=== PATIENT | male | born 2000 | race Caucasian/White ===

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

== ENCOUNTER 2018-04-16 19:55 | Emergency (ER) | payer BC, OTHER ==
[2018-04-16 20:03] VITALS: BP 124/86
[2018-04-16] MEDS ORDERED: Fluorescein Sodium TOPICAL* 1 MG TEST STRIP OPHTHALMIC ONE (20:08)
[2018-04-16] MEDS ORDERED: BSS OPTH.SOL* BTL OPHTHALMIC ONE (20:10)
--- NOTE | 2018-04-16 20:13 | UC ---
Eye Complaint HPI - HPI Summary HPI Summary: left eye erythema and purulent drainage. no visual deficits or injuries--does wear contact lens' - History of Current Complaint Chief Complaint: UCEye Stated Complaint: EYE IRRITATION Time Seen by Provider: 04/16/18 20:05 Hx Obtained From: Patient Onset/Duration: Sudden Onset Timing: Constant Pain Intensity: 0 Pain Scale Used: 0-10 Numeric Location of Injury: Conjunctiva - left eye Aggravating Factor(s): Contact Lens Alleviating Factor(s): Nothing Associated Signs And Symptoms: Positive: Drainage (Purulent) Related History: Similar Episode - Allergies/Home Medications Allergies/Adverse Reactions: Allergies Allergy/AdvReac Type Severity Reaction Status Date / Time azithromycin Allergy Rash Verified 04/16/18 20:04 Bees Allergy Anaphylatic Uncoded 02/01/17 17:49 Shock Home Medications: Home Medications NK [No Home Medications Reported] 04/16/18 [History Confirmed 04/16/18] PMH/Surg Hx/FS Hx/Imm Hx Previously Healthy: Yes - Surgical History Surgical History: Yes Surgery Procedure, Year, and Place: kidney surgery at age 6, removed scar tissue - Family History Known Family History: Positive: None Negative: Cardiac Disease, Hypertension, Diabetes - Social History Occupation: Employed Full-time Lives: With Family Alcohol Use: None Substance Use Type: None Smoking Status (MU): Former Smoker Type: eCigarettes Have You Smoked in the Last Year: No Review of Systems All Other Systems Reviewed And Are Negative: Yes Constitutional: Positive: Negative Skin: Positive: Negative Eyes: Positive: Drainage - left, Eye Redness - left ENT: Positive: Negative Respiratory: Positive: Negative Cardiovascular: Positive: Negative Gastrointestinal: Positive: Negative Genitourinary: Positive: Negative Motor: Positive: Negative Neurovascular: Positive: Negative Musculoskeletal: Positive: Negative Neurological: Positive: Negative Psychological: Positive: Negative Is Patient Immunocompromised?: No Physical Exam Triage Information Reviewed: Yes Appearance: Well-Appearing, No Pain Distress, Well-Nourished Vital Signs: Initial Vital Signs Temp 97.7 F 04/16/18 20:01 Pulse 84 04/16/18 20:01 Resp 18 04/16/18 20:01 BP 124/86 04/16/18 20:01 Pulse Ox 98 04/16/18 20:01 Vital Signs Reviewed: Yes Eye Exam: Other Eyes: Positive: Conjunctiva Clear - right, Conjunctiva Inflamed - left, Discharge - clear left ENT Exam: Normal ENT: Positive: Normal ENT inspection, Hearing grossly normal, TMs normal. Negative: Nasal congestion, Trismus, Muffled voice, Hoarse voice, Sinus tenderness Dental Exam: Normal Neck exam: Normal Neck: Positive: Supple, Nontender Respiratory Exam: Normal Respiratory: Positive: Chest non-tender, No respiratory distress, No accessory muscle use Cardiovascular Exam: Normal Cardiovascular: Positive: RRR, Pulses Normal, Brisk Capillary Refill Musculoskeletal Exam: Normal Musculoskeletal: Positive: Strength Intact, ROM Intact, No Edema Neurological Exam: Normal Neurological: Positive: Alert, Muscle Tone Normal Psychological Exam: Normal Skin Exam: Normal Re-Evaluation - Re-Evaluation First Eval Change: Unchanged - tolerated eye stain well no evidence of ulceration of laceration Eye Complaint Course/Dx - Course Course Of Treatment: cipro drops left eye follow with eye care provider-- dispove of current pair of contacts and begin with new pair - Differential Dx/Diagnosis Provider Diagnosis: Acute bacterial conjunctivitis of left eye Discharge - Sign-Out/Discharge Documenting (check all that apply): Patient Departure All imaging exams completed and their final reports reviewed: No Studies - Discharge Plan Condition: Stable Disposition: HOME Patient Education Materials: How to Use Eye Drops (ED), Conjunctivitis (ED) Referrals: No Primary Care Phys,NOPCP [Primary Care Provider] - Additional Instructions: Follow with eye care provider this week before you restart using contact lens - Billing Disposition and Condition Condition: STABLE Disposition: Home
[2018-04-16] MEDS ORDERED: Ciprofloxacin 0.3% OPTH.SOL* 2.5 ML BTL LEFT EYE ONE (20:22)
== END 2018-04-16 20:37 | disposition home or self-care (01) ==
LOC: UCEAST 19:55
DX: H10.89 Other conjunctivitis (principal); Z88.1 Allergy status to other antibiotic agents; Z87.891 Personal history of nicotine dependence
CPT/HCPCS: 99212; A9270-GY; G0463

== ENCOUNTER 2018-07-18 16:17 | Emergency (ER) | payer BC ==
[2018-07-18 16:42] VITALS: BP 130/80
--- NOTE | 2018-07-18 17:25 | UC ---
[facility] HPI - HPI Summary HPI Summary: 18-year-old male comes in with a chief complaint of an irritated tongue piercing. 2 days ago the patient had the tongue ring placed. He feels like his tongue is swollen. He also has some pain associated with it. He wonders if this is infected. He is decided that he does not like the feel of the tongue ring and wishes to have it removed. No fevers or chills. No difficulty swallowing. Feels well otherwise pain is worse when he moves the ring. Less pain when he doesn't. - History of Current Complaint Chief Complaint: UCSkin Stated Complaint: PIERCING COMPLAINT Time Seen by Provider: 07/18/18 16:55 Pain Intensity: 4 - Allergies/Home Medications Allergies/Adverse Reactions: Allergies Allergy/AdvReac Type Severity Reaction Status Date / Time azithromycin Allergy Rash Verified 07/18/18 16:42 Bees Allergy Anaphylatic Uncoded 07/18/18 16:42 Shock Home Medications: Home Medications EPINEPHrine [Epipen] 0.3 mg IJ SEE INSTRUCTIONS 07/18/18 [History Confirmed ] PMH/Surg Hx/FS Hx/Imm Hx Previously Healthy: Yes - Surgical History Surgical History: Yes Surgery Procedure, Year, and Place: kidney surgery at age 6, removed scar tissue - Family History Known Family History: Positive: None Negative: Cardiac Disease, Hypertension, Diabetes - Social History Alcohol Use: Rare Substance Use Type: Marijuana Smoking Status (MU): Light Every Day Tobacco Smoker Type: eCigarettes Have You Smoked in the Last Year: No Review of Systems All Other Systems Reviewed And Are Negative: Yes Constitutional: Positive: Negative Skin: Positive: Negative Eyes: Positive: Negative ENT: Positive: Other - SEE HPI Respiratory: Positive: Negative Cardiovascular: Positive: Negative Gastrointestinal: Positive: Negative Motor: Positive: Negative Neurovascular: Positive: Negative Musculoskeletal: Positive: Negative Neurological: Positive: Negative Psychological: Positive: Negative Is Patient Immunocompromised?: No Physical Exam Triage Information Reviewed: Yes Appearance: Well-Appearing, No Pain Distress, Well-Nourished Vital Signs: Initial Vital Signs Temp 99.1 F 07/18/18 16:37 Pulse 90 07/18/18 16:37 Resp 20 07/18/18 16:37 BP 130/80 07/18/18 16:37 Pulse Ox 98 07/18/18 16:37 Vital Signs Reviewed: Yes Eye Exam: Normal Eyes: Positive: Conjunctiva Clear ENT: Positive: Pharynx normal, Uvula midline, Other - TONGUE RING IN PLACE. TONGUE IS MILDLY SWOLLEN. NO DRAINAGE. Neck exam: Normal Neck: Positive: Supple Respiratory: Positive: No respiratory distress Musculoskeletal Exam: Normal Musculoskeletal: Positive: Strength Intact, ROM Intact Neurological Exam: Normal Neurological: Positive: Alert, Muscle Tone Normal Psychological Exam: Normal Psychological: Positive: Normal Response To Family, Age Appropriate Behavior Skin Exam: Normal Dental Complaint Course/Dx - Course Course Of Treatment: Patient was able to remove the tongue ring on his own. There is some swelling in the tongue. On the underside there may be a slight amount of pus or granulation tissue. Plan is to treat with an antibiotic and reevaluate if worse or any other questions or concerns. - Differential Dx/Diagnosis Provider Diagnosis: Encounter for piercing of tongue Discharge - Sign-Out/Discharge Documenting (check all that apply): Patient Departure All imaging exams completed and their final reports reviewed: No Studies - Discharge Plan Condition: Stable Disposition: HOME Prescriptions: Amoxicillin PO (*) [Amoxicillin 875 MG (*)] 875 mg PO BID #20 tab Referrals: [facility] [Outside] Additional Instructions: FOLLOW UP WITH YOUR DOCTOR OR RETURN HERE IF YOUR TONGUE PIERCING SITE NOT COMPLETELY IMPROVED. GET RECHECKED SOONER FOR ANY WORSENING OF YOUR CONDITION OR QUESTIONS OR CONCERNS. - Billing Disposition and Condition Condition: STABLE Disposition: Home
== END 2018-07-18 17:30 | disposition home or self-care (01) ==
LOC: UCEAST 16:17
DX: K14.8 Other diseases of tongue (principal); F17.290 Nicotine dependence, other tobacco product, uncomplicated; Z88.1 Allergy status to other antibiotic agents; Z91.030 Bee allergy status
CPT/HCPCS: 99212; G0463